=== PATIENT | female | born 1990 | race African-American/Black ===

== ENCOUNTER → 2016-11-15 | Day surgery (SDC) | payer OTHER ==
[~2016-11-15] VITALS: Ht 172.7 cm; Wt 59.4 kg
[~2016-11-15] MED LIST: KETOROLAC 60 MG/2 ML VIAL (J1885) As Ordered ONE; LIDOCAINE 2% INJ 100 MG/5 ML SDV (FOR ANES.) As Ordered ONE; LIDOCAINE W/EPINEPHRINE 1% 20ML VIAL As Ordered ONE; LIDOCAINE W/EPINEPHRINE 1% 20ML VIAL SQ ONE; LR 1,000 ML IV SCH; MIDAZOLAM INJ 2 MG/2 ML VIAL (J2250) As Ordered ONE; ONDANSETRON 4MG/2ML VIAL (J2405) As Ordered ONE; PROPOFOL 200 MG/20 ML VIAL As Ordered ONE; dexameTHASONE 4 MG/ML 1ML VIAL (J1100) As Ordered ONE; fentaNYL 100 MCG/2 ML INJECTION (J3010) As Ordered ONE; no medications
[2016-11-15 12:21] LABS: MEAN CORPUSCULAR HEMOGLOBIN 30.3 pg (27.0-33.0); RED CELL DISTRIBUTION WIDTH 12.3 % (11.5-14.5)
[2016-11-15 12:38] LABS: CONTROL LINE HCG INT CTR LINE PRESENT
[2016-11-15 17:42] VITALS: BP 112/71
--- NOTE | 2016-11-16 07:00 | RO ---
DATE OF PROCEDURE: 11/15/2016 PREPROCEDURE DIAGNOSIS: Bilaterally enlarged Bartholin gland cysts. POSTPROCEDURE DIAGNOSIS: Bilaterally enlarged Bartholin gland cysts. PROCEDURE: Bilateral Bartholin cyst marsupialization. SURGEON: Dr. Mehreen Benitez. ELECTRONIC MUSICAL INSTRUMENT REPAIRER: Dr. James Mcgill. ANESTHESIA: IV sedation INDICATION FOR OPERATION: Belkys is a 26-year-old female who presented to clinic with bilaterally enlarged Bartholin gland cysts desiring treatment. MATERIAL FORWARDED TO THE LAB FOR EXAMINATION: Segment of the right Bartholin cyst. DESCRIPTION OF FINDINGS: Exam under anesthesia revealed bilaterally enlarged Bartholin gland cysts approximately 4 x 1 cm on the right and 2.5 x 1 cm on the left. The cysts were filled with a gelatinous yellow-orange material and they were not infected. INFECTION CLASSIFICATION: 2. IV FLUIDS: 600 mL of lactated ringers. URINE OUTPUT: Not measured. ESTIMATED BLOOD LOSS: 2ml DESCRIPTION OF OPERATION: After obtaining informed consent, Belkys was taken to the operating room where she underwent IV sedation. She was placed in low lithotomy position. Perineum and vagina were prepped and draped in sterile fashion. She received no IV antibiotics but sequential compression devices (SCD ) were placed. We first addressed the right Bartholin gland cyst. 1% lidocaine with epinephrine was used to anesthetize the incision site which was just outside of the hymenal ring but on the mucosal surface of the right pelvic side wall. An approximately 2 cm long incision was made down to the level of the Bartholin cyst at which point, it was incised and the gelatinous material was suctioned out. We then used a hemostat to break up loculations and we used #2-0 Vicryl sutures to perform marsupialization by attaching the cyst wall to the vaginal mucosa using [id number] circumferentially around the entire cyst cavity. In the process of removing a small portion of the cyst wall which we did because there was scar tissue from previous incisions and it was as if she has two separate cyst cavities, we removed a piece of tissue to join the cavities so that we could perform one marsupialization on that side. In the process of removing that bit of tissue, part of the skin of the vulva approximately 2 cm in size was detached from the lower mucosal layer and so #4-0 Monocryl suture was used in running fashion to reattach it, which it did with complete normal cosmetic effect. That side was noted to be completely hemostatic and we turned our attention to the other Bartholin cyst. We used 1% lidocaine with epinephrine to anesthetize the incision area. We made an approximately 1.5 cm long incision just outside of the hymenal ring but within the vaginal mucosa on that side wall and we made our incision down to the level of the cyst which was incised and the orange gelatinous material was suctioned out completely. Hemostat was used to break up loculations and the cyst wall was attached to the mucosal layer using again #2-0 Vicryl with figure-of eight interrupted sutures. That side was noted to be hemostatic. She tolerated the procedure well. She was awakened from IV sedation and transferred to recovery in good condition. All counts were correct times two. GURUD
== END ==
LOC: M SDC 11:52
PROVIDERS: ATTEND Obstetrics & Gynecology
DX: N75.0 Cyst of Bartholin's gland (principal)
CPT/HCPCS: 36415; 56440; 84703; 85027; 86850; 86900; 86901; 88304; J1100; J1885; J2250; J2405; J3010

== ENCOUNTER 2017-12-18 07:33 | Day surgery (SDC) | payer OTHER ==
[2017-12-18] MEDS ORDERED: LR 1,000 ML IV (07:45)
[2017-12-18 08:26] LABS: CONTROL LINE HCG INT CTR LINE PRESENT; HCG, SERUM QUALITATIVE NEGATIVE (NEGATIVE)
[2017-12-18] MEDS ORDERED: LIDOCAINE 2% INJ 100 MG/5 ML SDV (FOR ANES.) As Ordered (09:27)
[2017-12-18] MEDS ORDERED: ROCURONIUM BROMIDE 50 MG/5 ML VIAL As Ordered (09:27)
[2017-12-18] MEDS ORDERED: PROPOFOL 200 MG/20 ML VIAL As Ordered ×4 (09:27→10:38)
[2017-12-18] MEDS ORDERED: MIDAZOLAM INJ 2 MG/2 ML VIAL (J2250) As Ordered (09:32)
[2017-12-18] MEDS ORDERED: fentaNYL 100 MCG/2 ML INJECTION (J3010) As Ordered (09:32)
[2017-12-18] MEDS ORDERED: BACITRACIN OINT 30GM As Ordered (09:53)
[2017-12-18] MEDS ORDERED: KETOROLAC 60 MG/2 ML VIAL (J1885) As Ordered (10:24)
[2017-12-18] MEDS ORDERED: ONDANSETRON 4MG/2ML VIAL (J2405) As Ordered (10:24)
[2017-12-18] MEDS ORDERED: GLYCOPYRROLATE INJ 0.2 MG/ML 2 ML VIAL As Ordered (10:25)
[2017-12-18] MEDS: LIDOCAINE W/EPINEPHRINE 1% 20ML VIAL As Ordered (10:26)
[2017-12-18] MEDS: LR 1,000 ML IV (11:00)
[2017-12-18] MEDS ORDERED: MEPERIDINE INJ 25 MG/ML VIAL (J2175) As Ordered (11:02)
[2017-12-18] MEDS: MEPERIDINE INJ 25 MG/ML VIAL (J2175) IV ×2 (11:15→11:20)
[2017-12-18] MEDS ORDERED: PERCOCET 5MG/325MG TAB PO (11:30)
[2017-12-18] MEDS ORDERED: ONDANSETRON 4MG/2ML VIAL (J2405) IV (11:30)
[2017-12-18] MEDS ORDERED: fentaNYL 100 MCG/2 ML INJECTION (J3010) IV (11:30)
== END 2017-12-18 13:40 | disposition home or self-care (01) ==
LOC: M SDC 07:33
DX: N75.0 Cyst of Bartholin's gland (principal)
CPT/HCPCS: 56440

== ENCOUNTER → 2018-12-26 | Outpatient (REF) | payer OTHER ==
[~2018-12-26] MED LIST changes: +FISH1000 PO; -KETOROLAC 60 MG/2 ML VIAL (J1885) As Ordered ONE; -LIDOCAINE 2% INJ 100 MG/5 ML SDV (FOR ANES.) As Ordered ONE; -LIDOCAINE W/EPINEPHRINE 1% 20ML VIAL As Ordered ONE; -LIDOCAINE W/EPINEPHRINE 1% 20ML VIAL SQ ONE; -LR 1,000 ML IV SCH; -MIDAZOLAM INJ 2 MG/2 ML VIAL (J2250) As Ordered ONE; +MULT1TAB18 PO; +NORCOTAB PO; -ONDANSETRON 4MG/2ML VIAL (J2405) As Ordered ONE; -PROPOFOL 200 MG/20 ML VIAL As Ordered ONE; +VITATAB11 PO; +ZOFR4TAB16 PO; -dexameTHASONE 4 MG/ML 1ML VIAL (J1100) As Ordered ONE; -fentaNYL 100 MCG/2 ML INJECTION (J3010) As Ordered ONE
== END ==
LOC: M SFHCLERA 17:27
PROVIDERS: ATTEND Physician Assistant
DX: J02.9 Acute pharyngitis, unspecified (principal)